=== PATIENT | female | born 1940 | race Caucasian/White ===

== ENCOUNTER 2016-10-03 06:04 | Day surgery (SDC) | payer MEDICARE, OTHER ==
[~2016-10-03 06:04] MED LIST: CEFAZOLIN SODIUM 2 GRAM PREMIX 100 ML IV PRN; GENTAMICIN SULFATE 320 MG in SODIUM CHLORIDE 0.9% 100 ML IV PRN; IV START KIT ONE; LACTATED RINGERS 1,000 ML ONE
[2016-10-03] MEDS ORDERED: CEFAZOLIN SODIUM 2 GRAM PREMIX 100 ML IV ONE (06:27)
[2016-10-03] MEDS ORDERED: IOPAMIDOL 300 (61%) 30 ML SDV ONE ×2 (06:43→08:35)
[2016-10-03] MEDS ORDERED: SODIUM CHLORIDE 0.9% 50 ML ONE (06:43)
[2016-10-03] MEDS ORDERED: OPIUM/BELLADONNA ALKALOIDS 1 EACH SUP PR ONE (06:52)
[2016-10-03] MEDS ORDERED: FENTANYL 100 MCG/2 ML VIAL ONE ×2 (07:04→08:40)
[2016-10-03] MEDS ORDERED: HYDRALAZINE HCL 20 MG/1 ML VIAL IV PRN (08:19)
[2016-10-03] MEDS ORDERED: MORPHINE SULFATE 4 MG/ML SYRINGE IV PRN ×2 (08:19→10:05)
[2016-10-03] MEDS ORDERED: ATROPINE SULFATE 0.4 MG/1 ML VIAL IV PRN (08:19)
[2016-10-03] MEDS ORDERED: NALOXONE HCL 0.4 MG/ML VIAL IV PRN (08:19)
[2016-10-03] MEDS ORDERED: MEPERIDINE 25 MG/ML SYRINGE IV PRN (08:19)
[2016-10-03] MEDS ORDERED: PROMETHAZINE HCL 25 MG/ML VIAL IM PRN (08:19)
[2016-10-03] MEDS ORDERED: ONDANSETRON 4 MG/2ML 2 ML VIAL IV PRN ×2 (08:19→09:39)
[2016-10-03] MEDS ORDERED: LACTATED RINGERS 1,000 ML IV SCH (08:30)
[2016-10-03] MEDS ORDERED: METOCLOPRAMIDE HCL 5 MG/ML 2ML VIAL ONE (08:39)
[2016-10-03] MEDS ORDERED: ONDANSETRON 4 MG/2ML 2 ML VIAL ONE (08:39)
[2016-10-03] MEDS ORDERED: PROPOFOL 20 ML IV ONE (08:39)
[2016-10-03] MEDS ORDERED: ROCURONIUM BROMIDE 10 MG/ML DOSE IV ONE (08:39)
[2016-10-03] MEDS ORDERED: MORPHINE SULFATE 10 MG/ML SYRINGE ONE (08:40)
[2016-10-03] MEDS ORDERED: GLYCOPYRROLATE 0.2 MG/ML 1ML VIAL ONE ×3 (08:45→08:55)
[2016-10-03] MEDS ORDERED: NEOSTIGMINE METHYLSULFATE 1 MG/ML DOSE ONE (08:55)
[2016-10-03] MEDS ORDERED: OPIUM/BELLADONNA ALKALOIDS 1 EACH SUP PR PRN (09:39)
[2016-10-03] MEDS ORDERED: MORPHINE SULFATE 2 MG/ML SYRINGE IV PRN (09:39)
[2016-10-03] MEDS ORDERED: HYDROCODONE/ACETAMINOPHEN 5/325MG TABLET PO PRN (09:39)
[2016-10-03] MEDS ORDERED: PHENAZOPYRIDINE HCL 200 MG TABLET ONE (09:55)
--- NOTE | 2016-10-03 09:57 | RAD ---
RETROGRADE UROGRAM HISTORY: Bilateral retrograde urogram for right ureteral stone removal and bilateral stent placement. TECHNIQUE: 241.8 seconds of fluoroscopy time was provided for Dr. Cook for purposes of procedural guidance. 15 fluoroscopic spot images were submitted for review. FINDINGS: Preliminary images demonstrate filling of the ureters with multiple filling defects identified compatible with known ureteral calculi documented on CT from 08/16/2016. Right-sided pelviectasis is noted. Final images demonstrate evidence of ureteral stent deployment bilaterally. IMPRESSION: Fluoroscopy provided for procedural guidance for bilateral retrograde urogram and ureteral stent placement. Filling defects in keeping with history of ureteral calculi.
[2016-10-03] MEDS ORDERED: MORPHINE SULFATE 10 MG/ML SYRINGE IV PRN (10:06)
--- NOTE | 2016-10-03 10:19 | OP ---
MIGNON RESENDEZ [id number] DATE OF OPERATION: October 03, 2016 SURGEON: Mike Cook M.D. INVESTIGATION DIVISION LIEUTENANT: None. ANESTHESIA: General. PREOPERATIVE DIAGNOSIS: Recurrent urolithiasis with bilateral ureteral calculi and chronic hydronephrosis. POSTOPERATIVE DIAGNOSIS: Recurrent urolithiasis with bilateral ureteral calculi and chronic hydronephrosis. PROCEDURE: 1. CYSTOSCOPY. 2. BILATERAL RETROGRADE URETEROGRAPHY. 3. RIGHT URETEROSCOPIC HOLMIUM LASER LITHOTRIPSY. 4. RIGHT URETERAL STENT. 5. LEFT URETERAL STENT. SPECIMENS: Fragments of right ureteral calculus. INDICATIONS: The patient is a 76-year-old woman with a current urolithiasis, currently with a heavy bilateral stone burden. She has what appeared to be two stones in the right ureter in the 7 to 9 mm range and also has known stones in the upper tract and in the left side. We have made the plan to clear the right ureter first. FINDINGS: The ureteral orifices are normally disposed. No focal bladder lesions. On left retrograde, the filling defect impression of two relatively large stones in the left upper ureter was identified. These were ultimately bypassed with a stent. On the right side, the stone was found in the mid to distal ureter and under direct examination, appeared to actually be one very elongated merged stone. The right upper ureter was extremely tortuous and the right kidney has the appearance of chronic hydronephrosis. We could not see a distinct filling defect of the ureteropelvic junction on the right but calculus material may be present within the calyceal system. PROCEDURE: The patient was identified and brought to the operating room where general anesthesia was induced and then she was placed in a modified lithotomy position with the right leg low and the left leg high. The genital region was prepared and draped sterilely. A 21 Tanzanian rigid cystoscope was introduced and the urethra and bladder were examined with findings as reported above using saline as an irrigant. Starting on the left side, we performed a retrograde ureterogram with fluoroscopic guidance. Findings are reported above. A similar procedure was repeated on the right. With these findings in hand, a floppy tip wire was passed up the right ureter, managing to bypass the stone, and proceeding all the way into the dilated renal pelvis, although we could see that the end was having to find a path through a complex circuit in the upper ureter. Next, cystoscope was withdrawn, and the wire secured. A semi-rigid ureteroscope was introduced in the right ureter using saline as an irrigant. Once we came up to the stone, a 365 micron laser fiber was used at an energy of 0.8 joules at a rate of 10 hertz. We used this to fragment the stone into pieces that could then be trapped with an open-ended basket and delivered externally. After removing all stone fragments and inspecting the ureter all the way up to the upper portion, we injected contrast through the scope and defined the extremely tortuous right upper ureter. With that completed, we removed ureteroscope and back threaded wire through the cystoscope. Over this, we passed a 22 cm 6 Tanzanian Polaris type stent and removed the wire. With that in position, we introduced the wire up the left ureter. It could not get past the first stone, and therefore, we switched to a glide type wire, which was able to negotiate its way past the stones into the renal pelvis on the left. Over this wire, we passed a similar 6 Tanzanian 22 cm Polaris type stent and removed the wire. With both stents in position, we removed the cystoscope and passed a 20 Tanzanian Wong catheter to gravity drainage with 10 mL of water in its balloon for temporary observation of hematuria. Estimated blood loss less than 10 mL. No early complications. The patient tolerated the procedure well and was taken in stable condition to the postanesthesia room. [id number] cc: Santiago Hinton. Santiago Leal.
[2016-10-03] MEDS ORDERED: HYDROCODONE/ACETAMINOPHEN 5/325MG TABLET ONE (12:06)
[2016-10-03] MEDS ORDERED: PHENAZOPYRIDINE HCL 200 MG TABLET PO SCH (15:00)
[2016-10-06 09:37] LABS: CALCULUS NUMBER 1 (()); CALCULUS TOTAL WEIGHT 81 mg (())
== END 2016-10-03 12:45 | disposition home or self-care (01) ==
LOC: SDC 06:04
PROVIDERS: ATTEND Urology
DX: N13.2 Hydronephrosis with renal and ureteral calculous obstruction (principal); I10 Essential (primary) hypertension; F41.9 Anxiety disorder, unspecified; E03.9 Hypothyroidism, unspecified; E78.5 Hyperlipidemia, unspecified; G25.81 Restless legs syndrome; M19.90 Unspecified osteoarthritis, unspecified site

== ENCOUNTER 2016-10-17 10:27 | Day surgery (SDC) | payer MEDICARE, OTHER ==
[2016-10-17] MEDS ORDERED: GENTAMICIN SULFATE 320 MG in SODIUM CHLORIDE 0.9% 100 ML IV PRN (10:30)
[2016-10-17] MEDS ORDERED: CEFAZOLIN SODIUM 2 GRAM DUPLEX 50 ML IV PRN (10:30)
[2016-10-17] MEDS ORDERED: LACTATED RINGERS 1,000 ML ONE (10:37)
[2016-10-17] MEDS ORDERED: IV START KIT ONE (10:38)
[2016-10-17] MEDS ORDERED: ONDANSETRON 4 MG/2ML 2 ML VIAL ONE (11:32)
[2016-10-17] MEDS ORDERED: PROPOFOL 20 ML IV ONE (11:32)
[2016-10-17] MEDS ORDERED: ROCURONIUM BROMIDE 10 MG/ML DOSE IV ONE (11:32)
[2016-10-17] MEDS ORDERED: FENTANYL 100 MCG/2 ML VIAL ONE ×3 (11:33→13:43)
[2016-10-17] MEDS ORDERED: MIDAZOLAM HCL 1 MG/ML 2ML VIAL ONE (11:34)
[2016-10-17] MEDS ORDERED: IOPAMIDOL 300 (61%) 30 ML SDV ONE (12:18)
[2016-10-17] MEDS ORDERED: OPIUM/BELLADONNA ALKALOIDS 1 EACH SUP PR ONE (12:20)
[2016-10-17] MEDS ORDERED: PROMETHAZINE HCL 25 MG/ML VIAL IM PRN (12:57)
[2016-10-17] MEDS ORDERED: ONDANSETRON 4 MG/2ML 2 ML VIAL IV PRN ×2 (12:57→15:13)
[2016-10-17] MEDS ORDERED: MORPHINE SULFATE 4 MG/ML SYRINGE IV PRN ×2 (12:57→15:26)
[2016-10-17] MEDS ORDERED: FENTANYL 100 MCG/2 ML VIAL IV PRN (12:57)
[2016-10-17] MEDS ORDERED: LACTATED RINGERS 1,000 ML IV SCH (13:00)
[2016-10-17] MEDS ORDERED: MORPHINE SULFATE 2 MG/ML SYRINGE IV PRN ×2 (13:01→15:13)
[2016-10-17] MEDS ORDERED: NEOSTIGMINE METHYLSULFATE 1 MG/ML DOSE ONE (13:13)
[2016-10-17] MEDS ORDERED: GLYCOPYRROLATE 0.2 MG/ML 1ML VIAL ONE (13:13)
[2016-10-17] MEDS ORDERED: HYDROCODONE/ACETAMINOPHEN 5/325MG TABLET PO PRN (15:13)
[2016-10-17] MEDS ORDERED: PHENAZOPYRIDINE HCL 200 MG TABLET PO SCH (15:13)
[2016-10-17] MEDS ORDERED: MORPHINE SULFATE 10 MG/ML SYRINGE IV PRN (15:28)
--- NOTE | 2016-10-17 15:33 | RAD ---
Exam: Fluoroscopy for stent placement COMPARISON: 10/03/[address] 10/05/2016 INDICATION: Stone removal with fluoroscopy guided left stent placement. Findings: Fluoroscopy was provided for Dr. Cook. 189.7 seconds of fluoroscopy time was utilized. 4 static images were submitted for interpretation. These images demonstrate a left ureteral stent in the expected location. Calculi are again appreciated within the lower pole. This examination is otherwise limited for interpretation. IMPRESSION: Fluoroscopy was provided for Dr. Cook for stent placement. Please see his note for discussion.
--- NOTE | 2016-10-17 15:45 | OP ---
MIGNON RESENDEZ [id number] DATE OF OPERATION: October 17, 2016 SURGEON: Mike Cook M.D. FRONT END DEVELOPER: None. ANESTHESIA: General. PREOPERATIVE DIAGNOSIS: Bilateral large volume urolithiasis, recurrent, apparently with two large right upper ureteral calculi and hydronephrosis. POSTOPERATIVE DIAGNOSIS: Bilateral large volume urolithiasis, recurrent, apparently with two large right upper ureteral calculi and hydronephrosis. PROCEDURE: 1. CYSTOSCOPY. 2. LEFT URETEROSCOPIC LASER LITHOTRIPSY. 3. LEFT URETERAL STENT. SPECIMENS: Fragments of left ureteral calculi. INDICATIONS: The patient is a 76-year-old woman who two weeks ago underwent right ureteroscopic surgery for an impacted ureteral calculus and bilateral stent placement. She returns now to clear two large calculi in the left proximal ureter. She is aware she has multiple large stones in the kidneys themselves. FINDINGS: The stents were protruding as expected in the bladder. The two large stones could be seen easily in the proximal ureter and did present some difficulty in getting a wire by them. These stones were successfully fragmented and most of the fragments removed, and the ureter cleared. It should be noted that there is irregular tortuosity and folding of the upper ureter probably consequence of these long time stones. We did not many large stones within the renal collecting system that were still adherent. PROCEDURE: The patient was identified and brought to the operating room where general anesthesia was induced, and then she was placed in a modified lithotomy position with the left leg low and the right leg high. The genital region was prepared and draped sterilely. A 21 Romanian cystoscope was introduced, and we started by removing her right ureteral stent and then pulled the left ureteral stent to the urethral meatus. We attempted to pass a floppy tip wire through the stent but it could negotiate its way past the upper stone. Therefore, we removed the stent entirely and passed a hybrid type wire which with the assistance of an end-hole catheter we successfully got this to pass the stones into the renal collecting system. Next, we introduced an introducer sheath parallel to the wire and removed the stylet. After securing the introducer sheath with #2-0 nylon, we introduced a flexible ureteroscope. We rapidly came up against the first large calculus. A 272 micron holmium fiber was used starting at an energy of 0.8 joules and 10 hertz. Later in the case we changed to 0.6 joules and 12 hertz. The stone was fragmented progressively and an open-ended basket used to retrieve fragments. Once we cleared the first stone, we began working on the second one. Once that was cleared, we went into the renal pelvis with some difficulty following the course of the tortuous upper ureter and found a few more fragments in various portions of the collecting system and removed these with the open ended basket. With the ureter cleared and a total energy consumed of 14.7 kilojoules, we removed the ureteroscope and the introducer sheath. We back threaded the wire through the cystoscope and then passed a 22 cm 6-Romanian Polaris type stent. Its position was confirmed fluoroscopically, and then we removed the cystoscope and placed a 20 Romanian Wong catheter to gravity drainage. Estimated blood loss less than 20 mL. No early complications. Patient tolerated the procedure well and was taken in stable condition to the post anesthesia room. cc: Mike Cook M.D. Enrique Pham M.D.
[2016-10-17] MEDS ORDERED: PHENAZOPYRIDINE HCL 200 MG TABLET ONE (15:46)
[2016-10-20 18:23] LABS: CALCULUS TOTAL WEIGHT 223 mg (())
== END 2016-10-17 20:12 | disposition home or self-care (01) ==
LOC: SDC 10:27
PROVIDERS: ATTEND Urology
PROC: 0TC78ZZ Extirpation of Matter from Left Ureter, Via Natural or Artificial Opening Endoscopic (ICD-10-PCS; principal; 2016-10-17)
PROC: 0T778DZ Dilation of Left Ureter with Intraluminal Device, Via Natural or Artificial Opening Endoscopic (ICD-10-PCS; principal; 2016-10-17)
DX: N13.2 Hydronephrosis with renal and ureteral calculous obstruction (principal); I10 Essential (primary) hypertension; E78.5 Hyperlipidemia, unspecified; E03.9 Hypothyroidism, unspecified; G25.81 Restless legs syndrome; M19.90 Unspecified osteoarthritis, unspecified site; E66.9 Obesity, unspecified
CPT/HCPCS: 52352; 82365; 77001; J3010 ×3; J1580; A9270 ×2; J2250; J2405; J7120; J7050; Q9967